=== PATIENT | female | born 1980 | race Caucasian/White ===

== ENCOUNTER 2018-09-03 13:32 | Emergency (ER) | payer MEDICARE ==
[2018-09-03 13:52] VITALS: BP 112/73; PULSE 75; RESP 18; TEMP 98.9
[2018-09-03] MEDS ORDERED: LIDOCAINE 1% INJ 10MG/ML (20 ML MDV) SQ ONE (14:00)
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
== END 2018-09-03 14:35 | disposition home or self-care (01) ==
LOC: EC 13:32
DX: N75.0 Cyst of Bartholin's gland (principal); F17.200 Nicotine dependence, unspecified, uncomplicated; Z79.1 Long term (current) use of non-steroidal anti-inflammatories (NSAID)
CPT/HCPCS: 99283; 56420; J2001

== ENCOUNTER 2019-10-07 00:30 | Inpatient (IN) | payer MEDICARE ==
[2019-10-07] MEDS ORDERED: OXYTOCIN 10 UNIT/ML 1 ML VIAL IM PRN (00:53)
[2019-10-07] MEDS ORDERED: METHYLERGONOVINE 0.2 MG/ML 1 ML AMP IM PRN (00:53)
[2019-10-07] MEDS ORDERED: LIDOCAINE 0.5% (PF) 5 MG/ML (50 ML SDV) SQ PRN (00:53)
[2019-10-07] MEDS ORDERED: CARBOPROST TROMETHAMINE 250 MCG/ML 1 ML AMP IM PRN (00:53)
[2019-10-07] MEDS ORDERED: TERBUTALINE 1 MG/ML VIAL SQ PRN (00:53)
[2019-10-07] MEDS ORDERED: LABETALOL 5 MG/ML VIAL MDV IVP PRN ×2 (00:55)
[2019-10-07] MEDS ORDERED: hydrALAZINE HCL 20 MG/ML 1 ML VIAL IVP PRN (00:55)
[2019-10-07] MEDS ORDERED: diphenhydrAMINE 50 MG/ML 1 ML VIAL IVP PRN ×2 (00:58)
[2019-10-07] MEDS ORDERED: LANOLIN CREAM 5 GM TUBE TOPICAL PRN (00:58)
[2019-10-07] MEDS ORDERED: diphenhydrAMINE 25 MG CAP PO PRN (00:58)
[2019-10-07] MEDS ORDERED: ACETAMINOPHEN TAB 325 MG TAB PO PRN (00:58)
[2019-10-07] MEDS ORDERED: HYDROcodone/APAP 5-325MG 1 EACH TAB PO PRN (00:58)
[2019-10-07] MEDS ORDERED: diphenhydrAMINE 50 MG CAP PO PRN (00:58)
[2019-10-07] MEDS ORDERED: BENZOCAINE/MENTHOL SPRAY 1 GM/SPRAY AEROSOL TOPICAL PRN (00:58)
[2019-10-07] MEDS ORDERED: ZOLPIDEM 5 MG TAB PO PRN (00:58)
[2019-10-07] MEDS ORDERED: HYDROCORTISONE 2.5% RECTAL CREAM 30 GM TUBE RECTAL PRN (00:58)
[2019-10-07] MEDS ORDERED: SIMETHICONE 80 MG CHEWABLE PO PRN (00:58)
[2019-10-07] MEDS ORDERED: OXYTOCIN 20 UNITS/1000 ML NS 1,000 ML IV SCH (01:00)
[2019-10-07] MEDS ORDERED: LACTATED RINGERS 1,000 ML IV SCH (01:00)
[2019-10-07 01:06] LABS: Basophils % (A) 0 %; Eosinophils # (A) 0.1 k/uL (0-0.7); Eosinophils % (A) 0 %; HCT 35.8 % (34.0-46.0); HGB 12.3 gm/dL (11.4-16.0); Lymphocytes # (A) 1.9 k/uL (1.0-4.8); Lymphocytes % (A) 14 %; MCH 30.4 pg (25.0-35.0); MCHC 34.3 g/dL (31.0-37.0); MCV 88.7 fL (80.0-100.0); Mean Platelet Volume 8.1; Monocytes # (A) 0.3 k/uL (0-1.0); Monocytes % (A) 3 %; Neutrophils # (A) 11.3 k/uL (1.3-7.7); Neutrophils % (A) 83 %; Platelet Count 223 k/uL (150-450); Poikilocytosis Slight; RBC 4.03 m/uL (3.80-5.40); RDW 13.7 % (11.5-15.5); WBC 13.7 k/uL (3.8-10.6)
[2019-10-07] MEDS: hydrALAZINE HCL 20 MG/ML 1 ML VIAL IVP PRN ×2 (01:06→01:07)
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
[2019-10-07] MEDS ORDERED: LABETALOL 200 MG TAB PO STA (01:36)
[2019-10-07] MEDS: IBUPROFEN 600 MG TAB PO PRN ×3 (01:40→23:53)
[2019-10-07 01:43] LABS: ALT 24 U/L (4-34); AST 32 U/L (14-36); African American GFR (CKD) >90 (>60 ml/min/1.73 sqM); Blood Urea Nitrogen 13 mg/dL (7-17); LDH 439 U/L (313-618); Non-African American GFR(CKD) >90 (>60 ml/min/1.73 sqM); Uric Acid 4.7 mg/dL (3.7-7.4)
[2019-10-07 01:49] LABS: INR 0.9 (<1.2); Partial Thromboplastin Time 21.7 sec (22.0-30.0); Prothrombin Time 9.4 sec (9.0-12.0)
[2019-10-07 07:38] VITALS: RESP 16
[2019-10-07] MEDS: SENNOSIDES-DOCUSATE SODIUM 1 EACH TAB PO SCH ×2 (07:40→21:37)
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
[2019-10-07] MEDS ORDERED: LABETALOL 200 MG TAB PO SCH (09:00)
[2019-10-07 10:41] LABS: Appearance,Urine Turbid (Clear); Bilirubin,Urine Negative (Negative); Blood,Urine Large (Negative); Color,Urine Dark Brown; Glucose,Urine (UA) Negative (Negative); Ketones,Urine 2+ (Negative); Leukocyte Esterase,Urine Large (Negative); Mucus,Urine Many /hpf; Nitrite,Urine Positive (Negative); Protein,Urine 2+ (Negative); RBC,Urine >182 /hpf (0-5); Specific Gravity,Urine 1.026 (1.001-1.035); WBC,Urine >182 /hpf (0-5)
[2019-10-07 10:45] LABS: Amphetamine Screen,Urine Detected (NotDetected); Barbiturate Screen,Urine Not Detected (NotDetected); Benzodiazepines Screen,Urine Not Detected (NotDetected); Cocaine Screen,Urine Not Detected (NotDetected); Methadone Screen, Urine Not Detected (NotDetected); Opiate Screen,Urine Detected (NotDetected); Oxycodone Screen, Urine Not Detected (NotDetected); Phencyclidine Screen,Urine Not Detected (NotDetected); Tricyclic Antidepressant,Urine Detected (NotDetected); Urn Cannabinoid Scrn Detected (NotDetected)
[2019-10-07 10:58] LABS: Protein/Creatinine Ratio,Urine 1.088
[2019-10-07 14:05] LABS: Hepatitis B Surface Antigen Non-Reactive (Non-Reactive)
[2019-10-07 14:23] LABS: HIV 2 AB Non-Reactive (Non-Reactive); HIV AB P24 Non-Reactive (Non-Reactive); HIV P24 AG Non-Reactive (Non-Reactive)
[2019-10-07] MEDS: LABETALOL 100 MG TAB PO SCH (23:53)
[2019-10-08 06:44] LABS: Basophils % (A) 0 %; Eosinophils # (A) 0.1 k/uL (0-0.7); Eosinophils % (A) 1 %; Hypochromasia Slight; Lymphocytes # (A) 2.3 k/uL (1.0-4.8); Lymphocytes % (A) 27 %; MCH 30.7 pg (25.0-35.0); MCHC 33.7 g/dL (31.0-37.0); Mean Platelet Volume 8.4; Monocytes # (A) 0.3 k/uL (0-1.0); Monocytes % (A) 4 %; Neutrophils # (A) 5.5 k/uL (1.3-7.7); Neutrophils % (A) 67 %; Platelet Count 161 k/uL (150-450); Poikilocytosis Slight; RBC 2.86 m/uL (3.80-5.40); RDW 13.9 % (11.5-15.5); WBC 8.3 k/uL (3.8-10.6)
[2019-10-08 06:50] LABS: HGB 8.8 gm/dL (11.4-16.0)
[2019-10-08] MEDS: LABETALOL 100 MG TAB PO SCH (08:00)
[2019-10-08] MEDS: SENNOSIDES-DOCUSATE SODIUM 1 EACH TAB PO SCH (08:09)
[2019-10-08 08:14] VITALS: TEMP 97.6
[2019-10-08] MEDS ORDERED: medroxyPROGESTERone 150 MG/ML 1ML VIAL IM ONE (08:34)
--- NOTE | 2019-10-08 08:34 | P.DS ---
Providers Date of admission: 10/07/19 00:30 Expected date of discharge: 10/08/19 Attending physician: Cat Zuniga Primary care physician: Stated None - Discharge Diagnosis(es) (1) No care in current Current Visit: Yes Status: Acute (2) (normal spontaneous vaginal delivery) Current Visit: Yes Status: Acute (3) Hypertension Current Visit: Yes Status: Acute (4) Rh negative, maternal Current Visit: Yes Status: Acute (5) Amputee, below knee Current Visit: Yes Status: Acute (6) Anemia Current Visit: Yes Status: Acute Hospital Course: This is a 39-year-old 2 now para 2 woman who presented after having an unattended vaginal delivery at home. She was unaware she was . She presented by EMS having not yet delivered the placenta. Following admission she was found to be significantly hypertensive with blood pressures in the 180s to 190s over 110s. An intact three-vessel cord placenta was manually expressed shortly following admission. Her blood pressure was managed with IV hydralazine and then oral labetalol for the first several hours. Preeclamptic labs were negative. By approximately 8 hours postdelivery her blood pressures had decreased significantly. Her labetalol was discontinued. Her course was otherwise unremarkable. She was found to have positive drug screen for multiple things. She also is anemic with a postdelivery hemoglobin of 8.8. By day #2 she had minimal lochia. She was voiding without difficulty and able to use a wheelchair without difficulty. web services architect consult is undertaken and assistance is in progress. The infant will remain in the special care nursery meconium drug testing etc. is pending. The was however doing very well. care and contraception were reviewed in detail with the patient. She reports she was on Depo-Provera for many years in the past and this worked well for her. She would like to restart this and I see no contraindication. She then verbalizes the ability to care for herself at home and her state. She does have family coming from [place] today who will be assisting her. Patient Condition at Discharge: Good Plan - Discharge Summary New Discharge Prescriptions: New Ferrous Sulfate [Iron] 325 mg PO BID #60 tablet Discharge Medication List Ferrous Sulfate [Iron] 325 mg PO BID #60 tablet 10/08/19 [Rx] Follow up Appointment(s)/Referral(s): Cat Zuniga MD [STAFF PHYSICIAN] - 4 Weeks Activity/Diet/Wound Care/Special Instructions: Follow-up in the office in 6 weeks . Call with any concerning signs or symptoms including heavy vaginal bleeding, severe abdominal pain, fever greater than 101, swelling or redness of the lower extremities, foul vaginal discharge, or signs of depression. Nothing in the vagina for 6 weeks after delivery, specifically no intercourse. Follow-up with primary care physician for evaluation of chronic hypertension Discharge Disposition: HOME SELF-CARE
[2019-10-08 14:25] LABS: C. trachomatis,PCR Negative (Neg,Equiv); Chlamydia trachomatis Source Urine; N. gonorrhoeae,PCR Negative (Neg,Equiv); Neisseria Source Urine
[2019-10-08 17:28] VITALS: BP 136/93; PULSE 88
== END 2019-10-08 17:37 | disposition home or self-care (01) | DRG 776 ==
LOC: 4FBP 00:30
PROVIDERS: ADMIT Obstetrics & Gynecology; ATTEND Obstetrics & Gynecology
DX: Z39.0 Encounter for care and examination of mother immediately after delivery (principal); O10.92 Unspecified pre-existing hypertension complicating childbirth; D64.9 Anemia, unspecified; F17.200 Nicotine dependence, unspecified, uncomplicated; O99.334 Smoking (tobacco) complicating childbirth; S09.90XS Unspecified injury of head, sequela; R41.3 Other amnesia; M47.9 Spondylosis, unspecified; O90.81 Anemia of the puerperium; V89.2XXS Person injured in unspecified motor-vehicle accident, traffic, sequela; Z3A.37 37 weeks gestation of pregnancy; Z89.512 Acquired absence of left leg below knee; Z89.511 Acquired absence of right leg below knee; Z67.91 Unspecified blood type, Rh negative; Z37.0 Single live birth
CPT/HCPCS: 80306; 81001; 82565; 82570; 82947; 83615; 84156; 84450; 84460; 84520; 84550; 85025; 85384; 85610; 85730; 86762; 86780; 86850; 86900; 86901; 87340; 87390; 87491; 87591; 88307

== ENCOUNTER 2024-02-23 17:44 | Emergency (ER) | payer MEDICARE ==
[2024-02-23 17:47] VITALS: BP 152/99; RESP 18; TEMP 97.7
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
[2024-02-23 18:36] VITALS: PULSE 106
== END 2024-02-23 18:34 | disposition home or self-care (01) ==
LOC: EC 17:44
DX: L02.414 Cutaneous abscess of left upper limb (principal); F17.200 Nicotine dependence, unspecified, uncomplicated
CPT/HCPCS: 10060; 99282